=== PATIENT | male | born 1985 | race African-American/Black ===

== ENCOUNTER 2016-09-21 17:32 | Emergency (ER) | payer OTHER ==
[~2016-09-21] VITALS: Ht 188 cm; Wt 79.5 kg
[2016-09-21 17:33] VITALS: BP 140/81; PULSE 72; RESP 20; TEMP 98.8; O2SAT 97
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
[2016-09-21] MEDS ORDERED: IBUPROFEN 800 MG TAB PO ONE (18:00)
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
[2016-09-21] MEDS ORDERED: IBUP800T23 PO (18:45)
== END 2016-09-21 19:08 | disposition home or self-care (01) ==
LOC: NEPK 17:32
DX: S50.311A Abrasion of right elbow, initial encounter (principal); M25.521 Pain in right elbow; M25.561 Pain in right knee; M25.551 Pain in right hip; V13.4XXA Pedal cycle driver injured in collision with car, pick-up truck or van in traffic accident, initial encounter; Y93.55 Activity, bike riding; Y92.410 Unspecified street and highway as the place of occurrence of the external cause; Y99.8 Other external cause status
CPT/HCPCS: 29240; 73080

== ENCOUNTER 2016-12-14 17:49 | Emergency (ER) | payer OTHER ==
[~2016-12-14] VITALS: Ht 188 cm; Wt 80.0 kg
[~2016-12-14 17:49] MED LIST: IBUP800T23 PO
[2016-12-14 17:54] VITALS: BP 132/80; PULSE 70; RESP 15; TEMP 98.2; O2SAT 98
[2016-12-14] MEDS ORDERED: ORPHENADRINE INJ 60 MG/2 ML AMP IM ONE (20:30)
[2016-12-14] MEDS ORDERED: KETOROLAC TROMETHAMINE 60 MG/2 ML (IM) VIAL IM ONE (20:30)
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
[2016-12-14] MEDS ORDERED: BACL10TA PO (21:32)
[2016-12-14] MEDS ORDERED: IBUP800T23 PO (21:32)
== END 2016-12-14 21:54 | disposition home or self-care (01) ==
LOC: NEPD 17:49
DX: S16.1XXA Strain of muscle, fascia and tendon at neck level, initial encounter (principal); S39.012A Strain of muscle, fascia and tendon of lower back, initial encounter; V89.2XXA Person injured in unspecified motor-vehicle accident, traffic, initial encounter; F17.210 Nicotine dependence, cigarettes, uncomplicated
CPT/HCPCS: 72100; 72125; 96372; 99285; J1885; J2360

== ENCOUNTER 2016-12-24 08:58 | Emergency (ER) | payer SELFPAY ==
[~2016-12-24] VITALS: Ht 188 cm; Wt 80.5 kg
[~2016-12-24 08:58] MED LIST changes: +BACL10TA PO
[2016-12-24 09:00] VITALS: BP 126/82; PULSE 54; RESP 16; TEMP 98.9; O2SAT 99
--- NOTE | 2016-12-24 09:17 | PD ---
HPI Chief Complaint: Bite or Sting Time Seen by Provider: 09:10 Travel History International Travel<30 days: No Contact w/Intl Traveler<30days: No Traveled to known affect area: No History of Present Illness HPI 31-year-old Afro-[place] male presents to the emergency Department with painful , erythematous, slightly raised insect bite to the left distal anterior patino just above the knee. He states he's been squeezing it and getting some light and clear fluid from it. He states it started yesterday after putting on some pains. He did not see a specific insect. He denies fever, chills, difficulty breathing or swallowing. He has no history of MRSA. He has no known drug allergies. PFSH Past Medical History Diminished Hearing: No Social History Alcohol Use: Yes (occassional) Tobacco Use: Yes (1.5PPD ) Substance Use: No Allergies-Medications (Allergen,Severity, Reaction): Coded Allergies: No Known Allergies (Unverified , 12/14/16) Reported Meds & Prescriptions Reported Meds & Active Scripts Active Ibuprofen 800 Mg Tab 800 Mg PO Q6HR PRN Baclofen 10 Mg Tab 10 Mg PO Q8HR PRN 10 Days Review of Systems Except as stated in HPI: all other systems reviewed are Neg General / Constitutional: No: Fever Eyes: No: Visual changes HENT: No: Headaches Cardiovascular: No: Chest Pain or Discomfort Respiratory: No: Shortness of Breath Gastrointestinal: No: Abdominal Pain Genitourinary: No: Dysuria Musculoskeletal: No: Pain Skin: Positive Lesions (see history present illness.), No Rash Neurologic: No: Weakness Psychiatric: No: Depression Endocrine: No: Polydipsia Hematologic/Lymphatic: No: Easy Bruising Physical Exam Narrative GENERAL: Patient is in no acute distress. SKIN: Warm and dry. Normal color. Normal turgor. Patient has a tender, slightly erythematous, slightly raised, indurated lesion to the left distal anterior patino consistent with insect bite. No significant abscess is noted at this time. HEAD: Atraumatic. Normocephalic. EYES: Pupils equal and round. No scleral icterus. No injection or drainage. ENT: No nasal bleeding or discharge. Mucous membranes pink and moist. Pharynx is clear. Airway is patent. NECK: Trachea midline. Supple and nontender CARDIOVASCULAR: Regular rate and rhythm. RESPIRATORY: No accessory muscle use. Clear to auscultation. Breath sounds equal bilaterally. MUSCULOSKELETAL: Extremities without clubbing, cyanosis, or edema. No obvious deformities. NEUROLOGICAL: Awake and alert. No obvious cranial nerve deficits. Motor grossly within normal limits. Five out of 5 muscle strength in the arms and legs. Normal speech. PSYCHIATRIC: Appropriate mood and affect; insight and judgment normal. Data Data Last Documented VS Vital Signs Date Time Temp Pulse Resp B/P Pulse Ox O2 Delivery O2 Flow Rate FiO2 12/24/16 09:00 98.9 54 16 126/82 99 Room Air MDM Medical Decision Making Medical Screen Exam Complete: Yes Emergency Medical Condition: Yes Differential Diagnosis Insect bite. Local reaction. Cellulitis. MRSA. Narrative Course Patient is given Bactrim DS twice a day 7 days. Patient is given ibuprofen 800 mg 3 times daily with food. #30. Patient use hot compresses to the area as discussed. Patient to follow up with [facility] or return to emergency department as needed. Diagnosis Primary Impression: Insect bite of leg, left, infected Qualified Code: S80.862A - Infected insect bite of left lower extremity, initial encounter Referrals: [facility] Patient Instructions: Cellulitis (ED), General Instructions, Insect Bite or Sting (ED) Additional Instructions: Patient is given Bactrim DS twice a day 7 days. Patient is given ibuprofen 800 mg 3 times daily with food. #30. Patient use hot compresses to the area as discussed. Patient to follow up with [facility] or return to emergency department as needed. Med/Other Pt SpecificInfo: Prescription(s) given Disposition: 01 DISCHARGE HOME Condition: Stable Duke Elam Dec 24, 2016 09:17
[2016-12-24] MEDS ORDERED: BACT800T5 PO (09:18)
[2016-12-24] MEDS ORDERED: IBUP800T23 PO (09:18)
== END 2016-12-24 09:39 | disposition home or self-care (01) ==
LOC: NEPK 08:58
DX: S80.862A Insect bite (nonvenomous), left lower leg, initial encounter (principal); L08.9 Local infection of the skin and subcutaneous tissue, unspecified; F17.200 Nicotine dependence, unspecified, uncomplicated; W57.XXXA Bitten or stung by nonvenomous insect and other nonvenomous arthropods, initial encounter
CPT/HCPCS: 99283